=== PATIENT | male | born 1940 | race Asian ===

== ENCOUNTER 2024-12-27 14:36 | Emergency (ER) | payer OTHER ==
[2024-12-27 15:24] VITALS: TEMP 98.4; BMI 26.5
[2024-12-27 17:40] LABS: ABSOLUTE IMMATURE GRANULOCYTES 0.07 x10^3/uL (0.0-0.031); BASOPHILS # 0.02 x10^3/uL (0.01-0.08); EOSINOPHIL % 1.2 % (0.8-7.0); EOSINOPHILS # 0.12 x10^3/uL (0.04-0.54); HEMATOCRIT 43.5 % (40.1-51.0); HEMOGLOBIN 14.2 g/dL (13.7-17.5); MCHC 32.6 g/dl (32.3-36.5); MEAN CELL VOLUME 88.4 fl (79.0-92.2); MEAN PLT VOLUME 10.2 fl (9.4-12.4); MONOCYTE # 0.75 x10^3/uL (0.30-0.82); MONOCYTE % 7.4 % (5.3-12.2); PLATELET COUNT 157 x10^3/uL (163-337); RDW 11.9 % (12.6-16.6)
[2024-12-27 17:57] LABS: POTASSIUM 4.4 mmol/L (3.5-5.1)
[2024-12-27 18:00] LABS: CALCIUM 8.8 mg/dL (8.5-10.1)
[2024-12-27 18:01] LABS: ALBUMIN 3.6 g/dl (3.4-5.0)
[2024-12-27 18:04] LABS: CREATININE 1.3 mg/dL (0.55-1.3)
[2024-12-27 18:05] LABS: BILIRUBIN,TOTAL 0.7 mg/dL (0.2-1)
[2024-12-27 18:14] VITALS: BP 142/71; PULSE 76; RESP 12
== END 2024-12-27 19:14 | disposition home or self-care (01) ==
LOC: JER 14:36
DX: S32.019A Unspecified fracture of first lumbar vertebra, initial encounter for closed fracture (principal); R94.31 Abnormal electrocardiogram [ECG] [EKG]; W01.198A Fall on same level from slipping, tripping and stumbling with subsequent striking against other object, initial encounter; Y92.009 Unspecified place in unspecified non-institutional (private) residence as the place of occurrence of the external cause
CPT/HCPCS: 36415; 70450-TC; 72125-TC; 72131-TC; 72170-TC-FY; 80053; 82962; 83735; 84484; 85025; 93005; 93010; 99285-25

== ENCOUNTER 2025-01-02 10:16 | Observation (INO) | payer OTHER ==
[2025-01-02] MEDS ORDERED: HYDROmorphone HCL CARPU-JECT 2 MG/1 ML DISP.SYRIN ONE (11:15)
[2025-01-02] MEDS: HYDROmorphone HCl 2 MG/ML VIAL IVPUSH ONE (11:35)
[2025-01-02 11:51] LABS: HEMATOCRIT 44.3 % (40.1-51.0); HEMOGLOBIN 14.5 g/dL (13.7-17.5); MCHC 32.7 g/dl (32.3-36.5); MEAN PLT VOLUME 10.1 fl (9.4-12.4); PLATELET COUNT 172 x10^3/uL (163-337)
[2025-01-02 12:24] LABS: CALCIUM 9.2 mg/dL (8.5-10.1)
[2025-01-02 12:25] LABS: ALBUMIN 3.4 g/dl (3.4-5.0)
[2025-01-02 12:28] LABS: CREATININE 1.2 mg/dL (0.55-1.3)
[2025-01-02 12:30] LABS: BILIRUBIN,TOTAL 0.9 mg/dL (0.2-1); TOT PROT 7.1 g/dl (6.4-8.2)
[2025-01-02 12:41] VITALS: RESP 18
[2025-01-02 16:40] VITALS: BMI 23.9
[2025-01-02] MEDS: LIDOCAINE 5% TOPICAL PATCH TP ONE (17:36)
[2025-01-02] MEDS: DOCUSATE SODIUM 100 MG CAPSULE (FP) PO SCH (17:39)
[2025-01-02] MEDS: ASPIRIN COATED 81 MG TABLET.EC PO SCH (17:39)
[2025-01-02] MEDS: LOSARTAN POTASSIUM 50 MG TABLET PO SCH (17:39)
[2025-01-02] MEDS: ACETAMINOPHEN 1000 MG/100 ML BAG IVPB SCH (17:39)
[2025-01-02] MEDS: INSULIN ASPART SLIDING SCALE (NOVOLOG) 1 VIAL SQ SCH (17:40)
[2025-01-02] MEDS: ATORVASTATIN CA 10 MG TABLET (FP) PO SCH (21:16)
[2025-01-02] MEDS: SENNOSIDES 8.6MG TABLET (FP) PO SCH (21:16)
[2025-01-02] MEDS: LIDOCAINE PATCH REMOVAL MC SCH (21:16)
[2025-01-03 08:14] LABS: HEMATOCRIT 41.1 % (40.1-51.0); HEMOGLOBIN 13.7 g/dL (13.7-17.5); MCHC 33.3 g/dl (32.3-36.5); MEAN CELL VOLUME 86.3 fl (79.0-92.2); PLATELET COUNT 163 x10^3/uL (163-337)
[2025-01-03 08:37] LABS: ALBUMIN 3.2 g/dl (3.4-5.0); BLOOD UREA NITROGEN 27.4 mg/dL (7-18); CALCIUM 8.9 mg/dL (8.5-10.1)
[2025-01-03 08:38] LABS: MAGNESIUM 1.9 mg/dL (1.8-2.4)
[2025-01-03 08:41] LABS: CREATININE 1.1 mg/dL (0.55-1.3); PHOSPHOROUS 3.9 mg/dL (2.5-4.9)
[2025-01-03 08:42] LABS: BILIRUBIN,TOTAL 0.9 mg/dL (0.2-1); TOT PROT 6.5 g/dl (6.4-8.2)
[2025-01-03] MEDS: ENOXAPARIN NA (PORCINE) 40 MG/0.4 ML DISP.SYRIN SQ SCH (10:16)
[2025-01-03] MEDS: HYDROmorphone HCL 2 MG TABLET PO PRN (21:00)
[2025-01-04 10:07] LABS: ABSOLUTE IMMATURE GRANULOCYTES 0.04 x10^3/uL (0.0-0.031); BASOPHILS # 0.08 x10^3/uL (0.01-0.08); EOSINOPHIL % 3.5 % (0.8-7.0); EOSINOPHILS # 0.27 x10^3/uL (0.04-0.54); HEMATOCRIT 44.8 % (40.1-51.0); MCHC 33.5 g/dl (32.3-36.5); MEAN CELL VOLUME 85.7 fl (79.0-92.2); MEAN PLT VOLUME 10.1 fl (9.4-12.4); MONOCYTE # 0.78 x10^3/uL (0.30-0.82); PLATELET COUNT 184 x10^3/uL (163-337); RDW 12.1 % (12.6-16.6)
[2025-01-04 10:31] LABS: POTASSIUM 3.6 mmol/L (3.5-5.1)
[2025-01-04 10:36] LABS: ALBUMIN 3.5 g/dl (3.4-5.0); BLOOD UREA NITROGEN 28.9 mg/dL (7-18); CALCIUM 8.8 mg/dL (8.5-10.1)
[2025-01-04 10:37] LABS: MAGNESIUM 1.9 mg/dL (1.8-2.4)
[2025-01-04 10:39] LABS: CREATININE 1.1 mg/dL (0.55-1.3); PHOSPHOROUS 3.3 mg/dL (2.5-4.9)
[2025-01-04 10:40] LABS: BILIRUBIN,TOTAL 0.7 mg/dL (0.2-1); TOT PROT 7.2 g/dl (6.4-8.2)
[2025-01-04] MEDS: ACETAMINOPHEN 500 MG TABLET (FP) PO SCH (16:07)
[2025-01-05] MEDS: oxyCODONE HCL 5 MG TABLET PO PRN (09:13)
[2025-01-06 10:01] VITALS: BP 134/71; PULSE 69; TEMP 97.7
== END 2025-01-06 14:48 ==
LOC: JER 10:16 → JERBED 11:19 → J6S 15:15
PROVIDERS: ADMIT Internal Medicine; ATTEND Internal Medicine
PROC: 3E033GC Introduction of Other Therapeutic Substance into Peripheral Vein, Percutaneous Approach (ICD-10-PCS; principal; 2025-01-02)
PROC: 3E033NZ Introduction of Analgesics, Hypnotics, Sedatives into Peripheral Vein, Percutaneous Approach (ICD-10-PCS; 2025-01-02)
DX: S32.019A Unspecified fracture of first lumbar vertebra, initial encounter for closed fracture (principal); W18.39XA Other fall on same level, initial encounter; Y93.89 Activity, other specified; Y92.89 Other specified places as the place of occurrence of the external cause; I10 Essential (primary) hypertension; E78.5 Hyperlipidemia, unspecified; E11.9 Type 2 diabetes mellitus without complications
CPT/HCPCS: 0241U-QW; 36415; 72100-TC-FY; 72131-TC; 72148-TC; 80053; 82962; 83735; 84100; 85025; 85027; 87635; 93005; 93010; 96372; 96374; 96375; 97116-GP; 97161-GP; 99285-25; G0378; J0131